=== PATIENT | female | born 1945 | race Caucasian/White ===

== ENCOUNTER → 2016-06-02 | Outpatient (CLI) | payer MEDICARE, OTHER ==
[~2016-06-02] MED LIST: AMBIEN 5MG TABLE5 MG PO; CALTRATE-600 W600 MG PO; LOTENSIN; MECLIZINE25 MG PO; NORVASC 5MG5 MG/TAB PO; PHENERGAN 25 TA25 MG PO; ULTRAM 50MG TAB50 MG PO; VALIUM5 MG PO; VICODIN 5/5001 UDTAB PO; ZOCOR 20MG20 MG PO; ZOFRAN ODT4 MG PO; estroven
== END ==
LOC: MC.RAD 14:00
DX: Z12.31 Encounter for screening mammogram for malignant neoplasm of breast (principal); Z80.3 Family history of malignant neoplasm of breast

== ENCOUNTER → 2017-10-14 | Outpatient (CLI) | payer MEDICARE, OTHER | LOC: MC.RAD 11:38 | DX: Z12.31 Encounter for screening mammogram for malignant neoplasm of breast (principal) ==

== ENCOUNTER → 2019-11-10 | Outpatient (CLI) | payer MEDICARE, MEDICAID | LOC: MC.RAD 11:45 | DX: Z12.31 Encounter for screening mammogram for malignant neoplasm of breast (principal) ==

== ENCOUNTER → 2020-04-05 | Outpatient (CLI) | payer MEDICARE, MEDICAID ==
[~2020-04-05] MED LIST changes: +LEVSIN 0.10.125 MG/T PO; +LEVSIN0.125 M1 PO
== END ==
LOC: COL.RAD 09:38
DX: K44.9 Diaphragmatic hernia without obstruction or gangrene (principal)

== ENCOUNTER 2020-04-06 15:09 | Emergency (ER) | payer MEDICARE, MEDICAID ==
[~2020-04-06] VITALS: Ht 162.6 cm; Wt 106.8 kg
[~2020-04-06 15:09] MED LIST changes: -LEVSIN 0.10.125 MG/T PO; -LEVSIN0.125 M1 PO
[2020-04-06 15:14] VITALS: TEMP 98.2
[2020-04-06 15:43] LABS: BASO % 0.5 % (0.0-2.0); EOS # 0.2 (0.0-0.7); GRAN # 4.9 (1.4-6.5); GRAN % 60.3 % (42.2-75.2); LYMPH # 1.9 (1.2-3.4); LYMPH % 22.7 % (20.0-51.0); MEAN CELL VOLUME 84 fl (80.0-100.0); MEAN CORPUSCULAR HEMOGLOBIN 25 pg (27.0-31.0); MEAN CORPUSCULAR HGB CONC 30 g/dl (33.0-37.0); MEAN PLATELET VOLUME 9.7 fl (7.4-10.4); MONO # 1.2 (0.1-0.6); MONO % 14.3 % (1.7-9.3); PLATELET COUNT 304 K/mm3 (130-400); RED BLOOD COUNT 4.43 M/mm3 (4.10-5.30); REDCELL DISTRIBUTION WIDTH-CV 16.9 % (11.5-14.5)
[2020-04-06 16:13] LABS: ALANINE AMINOTRANSFERASE 13 U/L (4-34); ALBUMIN 3.9 gm/dL (3.5-5.0); ALKALINE PHOSPHATASE 77 U/L (50-136); ANION GAP 9 mmol/L (7-16); AST,SGOT 22 U/L (15-37); BILIRUBIN,TOTAL 0.7 mg/dL (0.0-1.0); BLOOD UREA NITROGEN 14 mg/dL (7-17); CARBON DIOXIDE 24 mmol/L (22-30); CHLORIDE 107 mmol/L (98-107); CREATININE, serum 0.74 (0.52-1.25); GLUCOSE 99 mg/dL (74-106); LIPASE 77 U/L (23-300); SODIUM 140 mmol/L (137-145); TOTAL PROTEIN 7.3 gm/dL (6.4-8.2)
[2020-04-06 16:29] LABS: TROPONIN-I < 0.012 ng/mL (0.000-0.035)
[2020-04-06] MEDS ORDERED: LEVSIN 0.10.125 MG/T PO ×2 (16:51)
[2020-04-06] MEDS ORDERED: LEVSIN0.125 M1 PO (17:10)
[2020-04-06 17:21] VITALS: BP 125/72; PULSE 78
== END 2020-04-06 17:23 | disposition home or self-care (01) ==
LOC: COL.ER 15:09
PROVIDERS: Emergency Medicine
DX: K44.9 Diaphragmatic hernia without obstruction or gangrene (principal); D64.9 Anemia, unspecified; I10 Essential (primary) hypertension; E78.5 Hyperlipidemia, unspecified; Z88.5 Allergy status to narcotic agent

== ENCOUNTER 2020-05-23 08:24 | Observation (INO) | payer MEDICARE, MEDICAID ==
[2020-05-23] VITALS (10 sets, daily range): BP systolic 113–148; BP diastolic 39–62; PULSE 84–110; TEMP 98.1–98.7
[~2020-05-23] VITALS: Ht 162.6 cm; Wt 110.1 kg
[~2020-05-23 08:24] MED LIST changes: +LEVSIN 0.10.125 MG/T PO; +LEVSIN0.125 M1 PO
[2020-05-23] MEDS ORDERED: PRILOSEC 20MG20 MG PO (09:54)
--- NOTE | 2020-05-23 15:15 | NUR ---
Patient to room from PACU via bed. Patient is on Bipap, SpO2 96%. Patient does open eyes, says that she does not have pain, feels like she needs to "belch". Left lung sounds diminished, right upper lobe clear, right lower lobe diminished. Lap sites x7 to abd with bandaids CDI. Patient is lying on right side at this time. Brendonaghter in room with the patient. Will orient daughter to room at this time.
--- NOTE | 2020-05-23 16:05 | NUR ---
Patient attempts to use bedpan to urinate, no success. Assisted back to right side lying position. Denies needs.
--- NOTE | 2020-05-23 17:21 | NUR ---
Resting in bed on right side with eyes closed. Respirations even and unlabored. Remains on bipap. No signs or symptoms of discomfort noted at this time.
--- NOTE | 2020-05-23 17:57 | NUR ---
Patient more alert and awake at this time. Would like to come off Bipap and try to eat and drink some. Bipap removed and patient placed on oxygen at 3L/NC. Encourage patient to cough and deep breathe. Assist in repositioning patient and sitting upright to eat and drink. Oxygen sats around 94%.
--- NOTE | 2020-05-23 18:11 | NUR ---
Sitting up in bed eating dinner. SpO2 remains at 95% on oxygen at 3L/NC. Patient denies needs.
--- NOTE | 2020-05-23 21:30 | NUR ---
Assessment complete. Pt is AXO X3, states she has minimal discomfort to her ABD. Breathing is even and unlabored but shallow respirations noted on 3L via NC. ABD lap sites x7 are CDI. Pt is sitting up in the bed watching TV at this time and she denies further needs. Call light within reach.
[2020-05-24] VITALS (8 sets, daily range): BP systolic 116–149; BP diastolic 53–101; PULSE 64–106; TEMP 97.5–97.9
--- NOTE | 2020-05-24 08:00 | NUR ---
PATIENT IS A&O. VSS. PATIENT SLEEPING WITH 1L PER NC AND SATS AT 92%. NOTED LEFT LOWER LUNG ESCOBEDO DEMINISHED. PATIENT REQUIRED BI-PAP POST OP BUT IS DOING WELL ON OXYGEN PER NC NOW. ABD LAP SITES ARE CD&I. NO C/O N/V. PATIENT TOLERATING FULL LIQUID DIET. HEAD TO TOE ASSESSMENT COMPLETE. STUDENT NURSE WORKING WITH PATIENT, SEE NOTES.
--- NOTE | 2020-05-24 09:15 | NUR ---
Initial visit; Patient thanked Job Hand for listening and visiting with her about her son whom ministered to before his passing. Job Hand ministered to Bella's family as well. offered Bella God's blessings.
--- NOTE | 2020-05-24 15:22 | NUR ---
Research D[employer] Supervisor attempted intake but patient requests SW return at a different time as she is trying to rest.
--- NOTE | 2020-05-24 17:30 | NUR ---
PATIENT AMBULATING IN ROOM. PATIENT REPORTS SHE PASSED A LOT OF GAS BUT WAS UNABLE TO HAVE BM. PATIENT SITTING UP IN BEDSIDE CHAIR. NO C/O N/V. PATIENT DOING WELL
--- NOTE | 2020-05-24 20:02 | NUR ---
PT UP AD AMIRA IN ROOM. NO O2 ON. REQUEST AND GIVEN ICE WATER. DENIES ANY NEEDS. SITS IN RECLINER AND TAKES PHONE CALL. CALL LIGHT IN REACH.
[2020-05-25 04:00] VITALS: BP 147/51; PULSE 60; TEMP 97.8
--- NOTE | 2020-05-25 07:43 | NUR ---
PT UP AND ABOUT IN ROOM. VISITS WITH DAUGHTER PER PHONE. AWOKE THIS AM AND STATES SHE SLEPT WELL AFTER TAKING TRAMADOL AT HS LAST EVENING. DENIES ANY NEEDS. INT L WRIST FLUSH WELL. CALL LIGHT IN REACH.
[2020-05-25 08:00] VITALS: BP 131/58; PULSE 67; TEMP 97.5
[2020-05-25] MEDS ORDERED: ULTRAM 50MG TAB50 MG PO (09:07)
--- NOTE | 2020-05-25 11:30 | NUR ---
Patient is discharging home. Discharge instructions discussed with patient. No questions verbalized. INT discontinued by student nurse. Explained when follow up appointment is, she verbalized understanding. Copies of discharge instructions given to patient. She verbalized understanding of diet. All belongings packed up by patient. Patient being walked out by Brooklyn DAVIS.
== END 2020-05-25 11:45 | disposition home or self-care (01) ==
LOC: SDCO → SURG 15:14 → SDCO 05-24 12:59 → SURG 05-24 13:00
PROVIDERS: ADMIT Surgery
DX: K44.9 Diaphragmatic hernia without obstruction or gangrene (principal); K25.9 Gastric ulcer, unspecified as acute or chronic, without hemorrhage or perforation; K21.9 Gastro-esophageal reflux disease without esophagitis; I11.9 Hypertensive heart disease without heart failure; E78.5 Hyperlipidemia, unspecified; E78.00 Pure hypercholesterolemia, unspecified; E66.01 Morbid (severe) obesity due to excess calories; Z20.822 Contact with and (suspected) exposure to COVID-19; Z68.42 Body mass index [BMI] 45.0-49.9, adult; Z79.899 Other long term (current) drug therapy; Z80.8 Family history of malignant neoplasm of other organs or systems
CPT/HCPCS: OP; A9284; C1781; G0378; J1100; J2405; J2704; J3010; J7120

== ENCOUNTER 2020-09-07 10:36 | Inpatient (IN) | payer MEDICARE, MEDICAID ==
[~2020-09-07] VITALS: Ht 162.6 cm; Wt 109.8 kg
[~2020-09-07 10:36] MED LIST changes: +PRILOSEC 20MG20 MG PO
[2020-09-07 11:00] LABS: BASO % 0.3 % (0.0-2.0); EOS # 0.1 (0.0-0.7); EOS % 0.8 % (0-4.0); GRAN # 10.7 (1.4-6.5); GRAN % 69.7 % (42.2-75.2); HEMATOCRIT 38.1 % (37.0-47.0); HEMOGLOBIN 11.6 g/dl (12.5-16.0); LYMPH # 3.2 (1.2-3.4); LYMPH % 20.6 % (20.0-51.0); MEAN CELL VOLUME 85 fl (80.0-100.0); MEAN CORPUSCULAR HEMOGLOBIN 26 pg (27.0-31.0); MEAN CORPUSCULAR HGB CONC 30 g/dl (33.0-37.0); MEAN PLATELET VOLUME 9.8 fl (7.4-10.4); MONO # 1.2 (0.1-0.6); MONO % 8.1 % (1.7-9.3); PLATELET COUNT 318 K/mm3 (130-400); RED BLOOD COUNT 4.48 M/mm3 (4.10-5.30); REDCELL DISTRIBUTION WIDTH-CV 16.9 % (11.5-14.5)
[2020-09-07 11:13] LABS: ALANINE AMINOTRANSFERASE 26 U/L (4-34); ALBUMIN 3.6 gm/dL (3.5-5.0); ALKALINE PHOSPHATASE 96 U/L (50-136); ANION GAP 8 mmol/L (7-16); AST,SGOT 108 U/L (15-37); BILIRUBIN,TOTAL 1.2 mg/dL (0.0-1.0); BLOOD UREA NITROGEN 12 mg/dL (7-17); CALCIUM 8.8 mg/dL (8.4-10.2); CARBON DIOXIDE 22 mmol/L (22-30); CHLORIDE 109 mmol/L (98-107); CREATININE, serum 0.69 (0.52-1.25); GLUCOSE 130 mg/dL (74-106); POTASSIUM 4.2 mmol/L (3.4-5.0); SODIUM 139 mmol/L (137-145); TOTAL PROTEIN 6.8 gm/dL (6.4-8.2)
[2020-09-07 11:32] LABS: TROPONIN-I < 0.012 ng/mL (0.000-0.035)
[2020-09-07 11:38] LABS: COLLECTION METHOD CATHETER
[2020-09-07 11:45] LABS: C-REACTIVE PROTEIN < 0.5 mg/dL (0.0-0.9)
[2020-09-07 12:18] LABS: MUCOUS Present /lpf; PH 5 (5-8); SQUAMOUS EPITHELIAL 0-2 /hpf; URINE APPEARANCE Hazy; URINE BACTERIA Rare /hpf; URINE BILIRUBIN Negative (NEGATIVE); URINE BLOOD Negative (NEGATIVE); URINE COLOR Amber; URINE GLUCOSE Negative (NEGATIVE); URINE KETONE Negative (NEGATIVE); URINE LEUKOCYTE ESTERASE Negative (NEGATIVE); URINE NITRATE Negative (NEGATIVE); URINE PROTEIN(semi-quant) 2+ (NEGATIVE); URINE UROBILINOGEN >=4.0 mg/dL (NEGATIVE)
[2020-09-07 12:39] LABS: LIPASE 39987 U/L (23-300)
[2020-09-07 17:41] VITALS: BP 115/60; PULSE 70; TEMP 97.6
[2020-09-07 19:01] VITALS: BP 127/54; PULSE 89; TEMP 98
--- NOTE | 2020-09-07 20:00 | NUR ---
Report received, assumed care for assistant shift supervisor. Assessment complete. A&Ox3-very drowsy. Denies pain/nausea/shortness of breath. States she feels like she is full of gas-belching. NS@125ml/hr infusing without difficulty. O2@2L/NC-NOC baseline with O2 sats in the mid 90s. Plan of care discussed for this shift to include HS meds/pain-nausea meds/NPO/Calling for questions/concerns. Verbalizes understanding/denies needs. Call light in reach. Will monitor.
[2020-09-08] VITALS (7 sets, daily range): BP systolic 121–147; BP diastolic 54–97; PULSE 99–118; TEMP 97.7–99.6
--- NOTE | 2020-09-08 05:45 | NUR ---
Called with c/o pain to right side of abdomen-rating pain 8/10-described as intermittent sharp pains. Morphine given per dr order. Will monitor.
[2020-09-08 09:41] LABS: HEMATOCRIT 44.3 % (37.0-47.0); HEMOGLOBIN 13.4 g/dl (12.5-16.0); MEAN CELL VOLUME 85 fl (80.0-100.0); MEAN CORPUSCULAR HEMOGLOBIN 26 pg (27.0-31.0); MEAN CORPUSCULAR HGB CONC 30 g/dl (33.0-37.0); MEAN PLATELET VOLUME 10.1 fl (7.4-10.4); PLATELET COUNT 324 K/mm3 (130-400); RED BLOOD COUNT 5.19 M/mm3 (4.10-5.30); REDCELL DISTRIBUTION WIDTH-CV 17.2 % (11.5-14.5)
[2020-09-08 09:55] LABS: ALBUMIN 3.6 gm/dL (3.5-5.0); BILIRUBIN,TOTAL 1.3 mg/dL (0.0-1.0); CALCIUM 9.1 mg/dL (8.4-10.2); CREATININE, serum 0.76 (0.52-1.25)
[2020-09-08 11:03] LABS: BAND 11 % (0-10); LYMPHOCYTE 1 % (20.0-51.0); NEUTROPHILS 86 % (42.0-75.2); PLATELET ESTIMATE NORMAL (NORMAL)
--- NOTE | 2020-09-08 12:47 | NUR ---
Steam Fitter stopped by but patient requested to rest.
--- NOTE | 2020-09-08 15:08 | NUR ---
Sw met with the pt. The pt was in a lot of pain and was not speaking well. Sw called a aid nurse to help the pt to a chair as the pt was sitting up. The pt informed the Sw that her next of kin is Priscila Alva, daughter, (ph# [phone] and the person to notify is her husbandnimo Zavala (ph# [phone]). The Pt informed Sw that he DPOA-HC is her children Oswaldo and Priscila. DPOA-HC forms are in chart. The pt PCP is Codie White. Sw ended the assessment due to pt in pain and was falling asleep on Sw and the aid. Discharge Plan: Home.
--- NOTE | 2020-09-08 18:00 | NUR ---
Patient has been recieving IV morphine Q2 hours and IV zofran Q6 hours during this shift. Patient C/O 10/10 pain in her abdomen and intermittent nausea. Dr. Mackay consulted. Ultrasound of abdomen ordered and to be completed tomorrow AM. Daughter, Priscila, updated. Patient is resting in bed at this time. IV fluids and antibiotics running as ordered. O2 running at 2L via nasal cannula. Will continue to monitor. Call light in reach. Fall precautions in place.
--- NOTE | 2020-09-08 20:00 | NUR ---
Report received, assumed care for night cleaner. Assessment complete. A&Ox3-drowsy. Denies nausea/shortness of breath. VS remain stable. Received morphine at 1815 with good pain control. SItting in recliner-states she is more comfortable there than in the bed. NS@200ml/hr to left forearm INT-infusing without issues. Plan of care discussed for this shift to include pain/nausea control/IV fluids/antibioics/NPO/calling for questions/concerns. Verbalizes understanding/denies needs. Call light in reach. Will monitor.
--- NOTE | 2020-09-08 21:00 | NUR ---
Called with c/o pain/nausea. Rating pain 10/10 to right upper quadrant-described as constant throbbing. Morphine/zofran given per dr order. Will monitor.
--- NOTE | 2020-09-09 02:53 | NUR ---
Resting in bed eyes closed/audible snore. No s/s of pain/discomfort noted.
--- NOTE | 2020-09-09 05:00 | NUR ---
Noted to have swelling to left forearm-IV site infiltrated. DCd at this time-cath intact. INT to right forearm flushes without difficulty-good blood return. Fluids restarted at 200mls/hr to that IV. Arm elevated on pillows.
[2020-09-09 05:10] VITALS: BP 132/68; PULSE 98; TEMP 98.8
[2020-09-09 08:00] VITALS: BP 149/64; PULSE 92; TEMP 97.8
--- NOTE | 2020-09-09 08:35 | NUR ---
Shift assessment preformed. Lung bases sounded wet. Fluids put on hold. PRERNA Callahan notified. Patient given PRN morphine for abdominal pain rated an 8/10. PRN Zofran given for nausea. Patient up to the bathroom and placed back in bed. Patient denies any further pain, discomfort, or futher needs at this time. Ultrasound currently being conducted on ABD. Will continue to monitor. Call light in reach. Fall precautions in place. O2 running as 2 L via nasal cannula.
[2020-09-09 09:11] LABS: MEAN CELL VOLUME 85 fl (80.0-100.0); MEAN CORPUSCULAR HGB CONC 30 g/dl (33.0-37.0); MEAN PLATELET VOLUME 10.3 fl (7.4-10.4); PLATELET COUNT 233 K/mm3 (130-400); RED BLOOD COUNT 4.24 M/mm3 (4.10-5.30); REDCELL DISTRIBUTION WIDTH-CV 17.4 % (11.5-14.5)
[2020-09-09 09:22] LABS: ALBUMIN 2.7 gm/dL (3.5-5.0); BILIRUBIN,TOTAL 1.7 mg/dL (0.0-1.0); CALCIUM 8.3 mg/dL (8.4-10.2); CHOLESTEROL RISK RATIO 2.9; CREATININE, serum 0.82 (0.52-1.25); POTASSIUM 4.1 mmol/L (3.4-5.0); TOTAL PROTEIN 5.8 gm/dL (6.4-8.2)
[2020-09-09 09:25] LABS: HEMATOCRIT 36.2 % (37.0-47.0); MEAN CORPUSCULAR HEMOGLOBIN 26 pg (27.0-31.0)
[2020-09-09 10:12] LABS: BAND 14 % (0-10); METAMYELOCYTE 7 % (0-0); NEUTROPHILS 77 % (42.0-75.2); PLATELET ESTIMATE NORMAL (NORMAL)
[2020-09-09 10:17] LABS: OVALOCYTES 1+
[2020-09-09 10:20] VITALS: BP 149/64; PULSE 102; TEMP 97.8
--- NOTE | 2020-09-09 18:00 | NUR ---
Patient has had an ok day. Scheduled medications given. Assessment preformed. 1 dose of morphine and zofran given at the beginning of the shift for abdominal discomfort. Has not required further dosing and has been resting a majority of the shift. Possible lap choley tomorrow. IV fell out of arm. This RN and two others were unable to regain IV access. Right IJ placed. Patient denies any pain, discomfort, or further needs at this time. Will continue to monitor. Call light in reach. Fall precautions in place.
[2020-09-09 20:17] VITALS: BP 139/66; PULSE 100; TEMP 98
--- NOTE | 2020-09-09 20:40 | NUR ---
PT IN BED. HAS EYES CLOSED, FLAT AFFECT. DENIES PAIN. HAS RIJ WITH FLUIDS INFUSING WITHOUT PROBLEM. WEARING OXYGEN AT 3L/NC. REQUIRING 2 ASSIST TO BSC D/T WEAKNESS. WILL BE NPO AFTER MIDNIGHT FOR POSSIBLE SURGERY 09/10/20.
[2020-09-09 22:58] VITALS: BP 136/63; PULSE 97; TEMP 98.6
[2020-09-10 03:25] VITALS: BP 148/52; PULSE 98; TEMP 97.9
--- NOTE | 2020-09-10 05:30 | NUR ---
Medicated Morphine 2mg IVP for abdominal pain. Repositioned to right side.
[2020-09-10 06:26] LABS: MEAN CELL VOLUME 85 fl (80.0-100.0); MEAN CORPUSCULAR HGB CONC 30 g/dl (33.0-37.0); PLATELET COUNT 221 K/mm3 (130-400); RED BLOOD COUNT 3.82 M/mm3 (4.10-5.30); REDCELL DISTRIBUTION WIDTH-CV 17.3 % (11.5-14.5)
[2020-09-10 06:32] LABS: ALBUMIN 2.6 gm/dL (3.5-5.0); BILIRUBIN,TOTAL 1.4 mg/dL (0.0-1.0); CALCIUM 8.1 mg/dL (8.4-10.2); CREATININE, serum 0.72 (0.52-1.25); POTASSIUM 3.5 mmol/L (3.4-5.0); TOTAL PROTEIN 5.6 gm/dL (6.4-8.2)
[2020-09-10 06:41] LABS: HEMATOCRIT 32.6 % (37.0-47.0); HEMOGLOBIN 9.8 g/dl (12.5-16.0); MEAN CORPUSCULAR HEMOGLOBIN 26 pg (27.0-31.0)
--- NOTE | 2020-09-10 07:24 | NUR ---
Patient asleep in bed upon entering the room. Fluid running as ordered. No signs of pain, discomfort, or futher needs at this time. Will continue to monitor. Call light in reach. Fall precautions in place.
[2020-09-10 07:33] LABS: ANISOCYTOSIS 2+; BAND 4 % (0-10); HYPOCHROMIA 3+; LYMPHOCYTE 7 % (20.0-51.0); NEUTROPHILS 87 % (42.0-75.2); PLATELET ESTIMATE NORMAL (NORMAL)
[2020-09-10 08:28] VITALS: BP 157/53; PULSE 89; TEMP 98.8
--- NOTE | 2020-09-10 10:17 | NUR ---
Director Of Alumni Relations attended clinical rounds with the team. The patient is not ready for discharge this day. Following rounds, SW met with the patient. Patient states her daughter is her plsql developer. She states that her insurance has has someone out to her home to discuss more assistance. SW discussed home health with the patient. She was agreeable to reviewing Medicare.gov's list of agencies. SW provided list. The patient to review the list then inform SW of decision. *Discharge disposition: home (with possible home health)*
--- NOTE | 2020-09-10 10:27 | NUR ---
PATIENT RECEIVED FAIR IN BED.ON O2.DENIES PAIN.ON NPO.ASSESSMENT DONE.MEDS GIVEN.UPDATED FAMILY ABOUT PT'S PROGRESS. CALLED SAID WE INFORM HIM ABOUT PT'S SCAN RESULTS ONCE DONE.
[2020-09-10 11:02] VITALS: BP 132/62; PULSE 91; TEMP 98.1
--- NOTE | 2020-09-10 11:53 | NUR ---
First visit from the project management engineer. No needs right now.
[2020-09-10 16:00] VITALS: BP 138/113; PULSE 100; TEMP 98.2
--- NOTE | 2020-09-10 18:30 | NUR ---
Patient had an ok day. Has not C/O any N/V or pain this shift. Has been very tired. IV fluids DC'd, antibiotics running as ordered. Patient currently resting in bed. O2 running at 2L via nasal cannula. Patient denies any further needs at this time. Call light in reach. Fall precautions in place. VSS. Report given to AARON Osuna.
--- NOTE | 2020-09-10 20:00 | NUR ---
Report received, assumed care for weight shifter. Assessment complete. A&Ox3-very drowsy. Denies pain/nausea/shortness of breath. States only complaint is she feels so tired and cant stay awake. VS remain stable. Plan of care discussed for this shift to include pain/nausea meds/antibiotics/calling for questions/concerns. Verbalizes understanding/denies needs. Call light in reach. Will monitor.
[2020-09-10 20:15] VITALS: BP 132/55; PULSE 94; TEMP 98.7
[2020-09-10 23:02] VITALS: BP 154/87; PULSE 112; TEMP 98.8
--- NOTE | 2020-09-11 01:00 | NUR ---
Resting eyes closed. No s/s of pain/discomfort noted.
[2020-09-11 03:17] VITALS: BP 141/73; PULSE 109; TEMP 98.6
--- NOTE | 2020-09-11 05:02 | NUR ---
Had an uneventful night. Slept entire shift. Denies pain/nausea. Only complaint was feeling very tired. Denies current needs. Call light in reach. Will monitor.
[2020-09-11 07:27] LABS: MEAN CELL VOLUME 85 fl (80.0-100.0); MEAN CORPUSCULAR HGB CONC 30 g/dl (33.0-37.0); MEAN PLATELET VOLUME 10.1 fl (7.4-10.4); PLATELET COUNT 252 K/mm3 (130-400); RED BLOOD COUNT 3.78 M/mm3 (4.10-5.30); REDCELL DISTRIBUTION WIDTH-CV 17.2 % (11.5-14.5)
[2020-09-11 07:32] LABS: HEMATOCRIT 32.1 % (37.0-47.0); HEMOGLOBIN 9.7 g/dl (12.5-16.0); MEAN CORPUSCULAR HEMOGLOBIN 26 pg (27.0-31.0)
[2020-09-11 07:44] LABS: ALBUMIN 2.7 gm/dL (3.5-5.0); BILIRUBIN,TOTAL 1.3 mg/dL (0.0-1.0); CALCIUM 8.1 mg/dL (8.4-10.2); CREATININE, serum 0.65 (0.52-1.25); POTASSIUM 3.7 mmol/L (3.4-5.0); TOTAL PROTEIN 5.8 gm/dL (6.4-8.2)
[2020-09-11 08:02] VITALS: BP 150/63; PULSE 85; TEMP 97.8
[2020-09-11 08:16] LABS: BAND 19 % (0-10); LYMPHOCYTE 2 % (20.0-51.0); METAMYELOCYTE 1 % (0-0); NEUTROPHILS 69 % (42.0-75.2)
[2020-09-11 08:17] LABS: PLATELET ESTIMATE NORMAL (NORMAL)
[2020-09-11 12:30] VITALS: BP 142/62; PULSE 93; TEMP 97.6
[2020-09-11 16:20] VITALS: BP 132/46; PULSE 84; TEMP 99.7
--- NOTE | 2020-09-11 17:08 | NUR ---
Lens Maker met with the patient to review the discharge plan and home health. SW contacted the patient's daughter, Dariana # [phone] on speaker phone. They were agreeable to home health. They will discuss Medicare.gov's list of agencies then inform this SW of their choice. Dariana confirms she is the patient's caregiver at home. *Discharge disposition: Home with home health.
--- NOTE | 2020-09-11 18:00 | NUR ---
Patient has had an ok day. Has not C/O any N/V/D or pain. Scheduled medication given. Assessments preformed. Patient scheduled for lap kavoney tomorrow at 1200. VSS. Will continue to monitor. Call light in reach. Fall precautions in place.
--- NOTE | 2020-09-11 19:15 | NUR ---
Assumed care for manager of business. Assessment complete. A&Ox3-states she is still very drowsy. Denies pain/nausea/shortness of breath. VS remain stable. Has tolerated clear liquids. Requesting this nurse to call daughter to inform her of surgery time. Done at this time. Plan of care discussed for this shift to include HS meds/pain-nausea control/antibiotics/NPO at midnight. Verbalizes understanding. Consent signed and on front of chart. Denies needs. Call light in reach. will monitor.
[2020-09-11 19:32] VITALS: BP 144/67; PULSE 86; TEMP 98.4
[2020-09-11 23:38] VITALS: BP 137/64; PULSE 94; TEMP 97.4
[2020-09-12] VITALS (10 sets, daily range): BP systolic 108–152; BP diastolic 42–76; PULSE 48–96; TEMP 97.6–98.9
--- NOTE | 2020-09-12 03:10 | NUR ---
Up to bathroom at this time. Medium loose stool noted.
--- NOTE | 2020-09-12 06:29 | NUR ---
Rested well this shift. Denies pain/nausea. O2@1L/NC with adequate O2 saturation. Has remained NPO since midnight for lap rosa at 1200. RIJ triple lumen flushes well with good blood return. Consent signed and on front of chart. Denies current needs. Call light in reach. Will monitor.
[2020-09-12 06:46] LABS: MEAN CELL VOLUME 84 fl (80.0-100.0); MEAN CORPUSCULAR HGB CONC 31 g/dl (33.0-37.0); MEAN PLATELET VOLUME 9.8 fl (7.4-10.4); PLATELET COUNT 217 K/mm3 (130-400); RED BLOOD COUNT 3.62 M/mm3 (4.10-5.30); REDCELL DISTRIBUTION WIDTH-CV 17.1 % (11.5-14.5)
[2020-09-12 06:51] LABS: ALBUMIN 2.6 gm/dL (3.5-5.0); BILIRUBIN,TOTAL 0.9 mg/dL (0.0-1.0); CREATININE, serum 0.62 (0.52-1.25); HEMATOCRIT 30.3 % (37.0-47.0); HEMOGLOBIN 9.3 g/dl (12.5-16.0); MEAN CORPUSCULAR HEMOGLOBIN 26 pg (27.0-31.0); POTASSIUM 3.4 mmol/L (3.4-5.0); TOTAL PROTEIN 5.6 gm/dL (6.4-8.2)
[2020-09-12 07:53] LABS: BAND 21 % (0-10); EOSINOPHIL 1 % (0-4); LYMPHOCYTE 2 % (20.0-51.0); METAMYELOCYTE 3 % (0-0); NEUTROPHILS 67 % (42.0-75.2); PLATELET ESTIMATE NORMAL (NORMAL)
[2020-09-12 07:54] LABS: ANISOCYTOSIS 1+
--- NOTE | 2020-09-12 09:03 | NUR ---
Pt AOx4, reports drowsiness in AM. Abdomen soft with palpation, denied pain at this time.
[2020-09-12] MEDS ORDERED: NORCO 325 MG-51 TAB PO (14:20)
--- NOTE | 2020-09-12 15:32 | NUR ---
Pt returned to room 1450. Pt drowsy but arouses with name. Lap sites x4 well approximated, no blood noted at this time. Receiving 4L NC.
--- NOTE | 2020-09-12 15:41 | NUR ---
Respirations increased at this time, pt snoring. Takes quick breaths in between, no discomfort noted at this time. Other VS stable, no further intervention taken.
--- NOTE | 2020-09-12 17:52 | NUR ---
Pt maintained NPO status until procedure. Pt abdomen non-tender, soft upon morning assessment. No pain reported. Post Op vital signs remained stable, pt was drowsy, arousable upon hearing name. Oriented to person, time, and place. Pt started on Potassium protocol, two doses given, the third re-timed for electrical repairer due to pt sleeping after procedure. Pt remained free from injury during this shift. Pt able to express needs and converse freely thoughout shift.
--- NOTE | 2020-09-12 20:30 | NUR ---
Initial shift assessment done- denies pain, denies nausea, states not passing gas yet-- requesting a jello at this time. Taking water without nausea. Abd lap sites x5 , clean dry approximated- Up to bathroom, voiding well. o2 at 2L/nc, sats 96-97% States she is going home tomorrow
[2020-09-13 00:37] VITALS: BP 140/52; PULSE 73; TEMP 97.9
[2020-09-13 04:08] VITALS: BP 142/51; PULSE 59; TEMP 97.5
--- NOTE | 2020-09-13 05:41 | NUR ---
Quiet night- VSS, denies nausea/pain--hopes to go home today, slept well, did sit up in recliner and sleep for most of the night-up to bathroom with assist- voiding well. Abd lap sites x5 open to air- no drainage
[2020-09-13 07:17] LABS: MEAN CELL VOLUME 86 fl (80.0-100.0); MEAN CORPUSCULAR HGB CONC 31 g/dl (33.0-37.0); MEAN PLATELET VOLUME 10.2 fl (7.4-10.4); PLATELET COUNT 247 K/mm3 (130-400); RED BLOOD COUNT 3.53 M/mm3 (4.10-5.30); REDCELL DISTRIBUTION WIDTH-CV 17.2 % (11.5-14.5)
[2020-09-13 07:20] LABS: HEMATOCRIT 30.2 % (37.0-47.0); HEMOGLOBIN 9.2 g/dl (12.5-16.0); MEAN CORPUSCULAR HEMOGLOBIN 26 pg (27.0-31.0)
[2020-09-13 07:28] LABS: ALBUMIN 2.6 gm/dL (3.5-5.0); BILIRUBIN,TOTAL 0.4 mg/dL (0.0-1.0); CREATININE, serum 0.59 (0.52-1.25); POTASSIUM 3.8 mmol/L (3.4-5.0); TOTAL PROTEIN 5.7 gm/dL (6.4-8.2)
[2020-09-13 07:56] VITALS: BP 129/58; PULSE 73; TEMP 97.9
[2020-09-13 08:01] LABS: BAND 13 % (0-10); LYMPHOCYTE 10 % (20.0-51.0); METAMYELOCYTE 6 % (0-0); NEUTROPHILS 65 % (42.0-75.2); PLATELET ESTIMATE NORMAL (NORMAL)
[2020-09-13] MEDS ORDERED: FLAGYL500 MG PO (10:25)
[2020-09-13] MEDS ORDERED: CIPRO 500MG TA500 MG PO (10:25)
--- NOTE | 2020-09-13 10:28 | NUR ---
The patient's daughter chose [facility]. Referral faxed. Awaiting screen.
[2020-09-13 12:02] VITALS: BP 132/62; PULSE 75; TEMP 98
--- NOTE | 2020-09-13 12:24 | NUR ---
REMOVED PT IJ AT REQUEST OF PRIMARY NURSE AARON MCGARRY. PT TOLERATED REMOVAL OF IJ WITHOUT COMPLICATIONS. SITE CHLOROPREPPED, AND GAUZE WITH TEGADERM USED FOR PRESSURE DRESSING. ASSESSMENT FOR BLEEDING POST REMOVAL, AND CLOTTING WAS ALREADY TAKING PLACE. NO CONCERNS FOR BLEEDING POST REMOVAL. PT DENIES ANY PAIN. NO FURTHER CONERNS.
--- NOTE | 2020-09-13 13:52 | NUR ---
discharge education provided, ij removed by berta wilson, no other needs at this itwi. escorted out via wheelchair.
--- NOTE | 2020-09-13 16:16 | NUR ---
The patient discharged home today, 09/13 with [facility] and family support. Nelson with [facility] reports they can accept the patient for PT/OT/Nursing and will meet the patient on 09/14. Discharge orders faxed. No other needs.
== END 2020-09-13 13:52 | disposition home health service (06) | DRG 853 ==
LOC: COL.ER 10:36 → MEDICAL 12:45 → SURG 12:45 → MEDICAL 16:10
PROVIDERS: Nurse Practitioner; Physician Assistant; Surgery; ADMIT Internal Medicine
PROC: 05HM33Z Insertion of Infusion Device into Right Internal Jugular Vein, Percutaneous Approach (ICD-10-PCS; 2020-09-09)
PROC: BF121ZZ Fluoroscopy of Gallbladder using Low Osmolar Contrast (ICD-10-PCS; 2020-09-12)
PROC: 8E0W4CZ Robotic Assisted Procedure of Trunk Region, Percutaneous Endoscopic Approach (ICD-10-PCS; 2020-09-12)
PROC: 0FT44ZZ Resection of Gallbladder, Percutaneous Endoscopic Approach (ICD-10-PCS; principal; 2020-09-12 12:00)
DX: A41.9 Sepsis, unspecified organism (principal); K85.80 Other acute pancreatitis without necrosis or infection; J96.01 Acute respiratory failure with hypoxia; I50.30 Unspecified diastolic (congestive) heart failure; J98.11 Atelectasis; E78.00 Pure hypercholesterolemia, unspecified; D64.9 Anemia, unspecified; R73.9 Hyperglycemia, unspecified; G72.9 Myopathy, unspecified; I11.0 Hypertensive heart disease with heart failure; E66.9 Obesity, unspecified; E78.5 Hyperlipidemia, unspecified; Z20.828 Contact with and (suspected) exposure to other viral communicable diseases; Z98.51 Tubal ligation status
CPT/HCPCS: 99222-AI; 99232-AI; 99233-AI; 99239; A9284; C1751; J0690; J1650; J1940; J2270; J2405; J2543; J2704; J3010; J3370; J3480; J7030; J7050; J7120; Q9967

== ENCOUNTER → 2021-12-12 | Outpatient (CLI) | payer MEDICARE, MEDICAID ==
[~2021-12-12] MED LIST changes: +CIPRO 500MG TA500 MG PO; +FLAGYL500 MG PO; +NORCO 325 MG-51 TAB PO
== END ==
LOC: COL.PUL 09:16
DX: R06.09 Other forms of dyspnea (principal); R01.1 Cardiac murmur, unspecified